=== PATIENT | male | born 1965 | race Caucasian/White ===

== ENCOUNTER 2022-03-20 12:38 | Outpatient (CLI) | payer BC | END 2022-03-20 12:39 | disposition home or self-care (01) | LOC: CSHLAB 12:38 | PROVIDERS: ATTEND Internal Medicine Gastroenterology | DX: Z20.822 Contact with and (suspected) exposure to COVID-19 (principal); Z12.11 Encounter for screening for malignant neoplasm of colon; Z53.9 Procedure and treatment not carried out, unspecified reason ==

== ENCOUNTER 2022-03-29 06:59 | Day surgery (SDC) | payer BC ==
[2022-03-28 11:07] VITALS: BMI 26.7
[2022-03-29] MEDS ORDERED: PROPOFOL 40 ML ONE (08:38)
[2022-03-29] MEDS ORDERED: Lidocaine 2% PF 100 mg/5 ml Syringe ONE (08:38)
== END 2022-03-29 11:40 | disposition home or self-care (01) ==
LOC: CSHSDC 06:59
PROVIDERS: ATTEND Internal Medicine Gastroenterology
PROC: 0DJD8ZZ Inspection of Lower Intestinal Tract, Via Natural or Artificial Opening Endoscopic (ICD-10-PCS; principal; 2022-03-29)
DX: Z12.11 Encounter for screening for malignant neoplasm of colon (principal); K64.8 Other hemorrhoids; Z86.010 Personal history of colon polyps; F32.A Depression, unspecified; F41.9 Anxiety disorder, unspecified; G47.00 Insomnia, unspecified; Z79.899 Other long term (current) drug therapy
CPT/HCPCS: J2001; J2704